=== PATIENT | female | born 1985 | race American Indian/Alaskan Native ===

== ENCOUNTER 2018-05-13 17:07 | Emergency (ER) | payer MEDICAID ==
[~2018-05-13] VITALS: Ht 160 cm; Wt 54.5 kg
[~2018-05-13 17:07] MED LIST: DOXYCYCLINE 10100 MG PO
[2018-05-13] MEDS ORDERED: IBU800 M1 PO (18:12)
[2018-05-13 19:36] VITALS: BP 98/68; PULSE 60; TEMP 98.7
== END 2018-05-13 19:38 | disposition home or self-care (01) ==
LOC: COL.ER 17:07
DX: M25.361 Other instability, right knee (principal); X58.XXXA Exposure to other specified factors, initial encounter; Y92.009 Unspecified place in unspecified non-institutional (private) residence as the place of occurrence of the external cause
CPT/HCPCS: J1885; L1846